=== PATIENT | male | born 1975 | race American Indian/Alaskan Native ===

== ENCOUNTER 2017-08-01 20:01 | Emergency (ER) | payer BC ==
[2017-08-01] MEDS ORDERED: ATROVENT IH ONE (20:34)
[2017-08-01] MEDS ORDERED: PROVENTIL IH ONE (20:34)
--- NOTE | 2017-08-01 22:37 | XRay Report ---
FINAL REPORT PROCEDURE: XR CHEST ROUTINE 2V TECHNIQUE: PA and lateral chest radiographs were obtained. CPT 01738 HISTORY: cough COMPARISON: No prior studies are available for comparison. FINDINGS: Heart: Normal. Mediastinum/Vessels: Normal. Lungs/Pleural space: Normal. Bony thorax: No acute osseous abnormality. Other: IMPRESSION: Negative examination.
--- NOTE | 2017-08-02 01:37 | Emergency Department Report ---
- General Chief Complaint: Upper Respiratory Infection Stated Complaint: POSS BRONCHITIS Time Seen by Provider: 08/02/17 01:29 Source: patient Mode of arrival: Ambulatory Limitations: No Limitations - History of Present Illness MD Complaint: cough (productive cough and SHOB for 4 days. he went to the Urgent care and was referred to here because of his wheezes. He smokes and says he gets such flare up because of weather change. His cough and breathing improved after getting breathing treatment.) - Related Data Previous Rx's Medication Instructions Recorded Last Taken Type Cephalexin [Keflex] 500 mg PO Q6H 10 Days capsule 08/02/17 Unknown Rx Prednisone 50 mg PO DAILY 7 Days tablet 08/02/17 Unknown Rx Allergies Allergy/AdvReac Type Severity Reaction Status Date / Time No Known Allergies Allergy Unverified 08/01/17 20:25 ED Review of Systems ROS: Stated complaint: POSS BRONCHITIS Other details as noted in HPI Constitutional: denies: chills, fever Eyes: denies: eye pain, eye discharge, vision change ENT: denies: ear pain, throat pain Respiratory: cough, shortness of breath, wheezing Cardiovascular: denies: chest pain, palpitations Endocrine: no symptoms reported Gastrointestinal: denies: abdominal pain, nausea, diarrhea Genitourinary: denies: urgency, dysuria Musculoskeletal: denies: back pain, joint swelling, arthralgia Skin: denies: rash, lesions Neurological: denies: headache, weakness, paresthesias Psychiatric: denies: anxiety, depression Hematological/Lymphatic: denies: easy bleeding, easy bruising ED Past Medical Hx - Past Medical History Previous Medical History?: No - Surgical History Past Surgical History?: No - Social History Smoking Status: Current Every Day Smoker Substance Use Type: None - Medications Home Medications: Home Medications Medication Instructions Recorded Confirmed Last Taken Type Cephalexin [Keflex] 500 mg PO Q6H 10 Days capsule 08/02/17 Unknown Rx Prednisone 50 mg PO DAILY 7 Days tablet 08/02/17 Unknown Rx ED Physical Exam - General Limitations: No Limitations General appearance: alert, in no apparent distress - Head Head exam: Present: atraumatic, normocephalic - Eye Eye exam: Present: normal appearance - ENT ENT exam: Present: mucous membranes moist - Neck Neck exam: Present: normal inspection - Respiratory Respiratory exam: Present: normal lung sounds bilaterally, wheezes, prolonged expiratory. Absent: respiratory distress, rales, rhonchi, stridor, chest wall tenderness, accessory muscle use, decreased breath sounds - Cardiovascular Cardiovascular Exam: Present: regular rate, normal rhythm. Absent: systolic murmur, diastolic murmur, rubs, gallop - GI/Abdominal GI/Abdominal exam: Present: soft, normal bowel sounds - Rectal Rectal exam: Present: deferred - Extremities Exam Extremities exam: Present: normal inspection - Back Exam Back exam: Present: normal inspection - Neurological Exam Neurological exam: Present: alert, oriented X3 - Psychiatric Psychiatric exam: Present: normal affect, normal mood - Skin Skin exam: Present: warm, dry, intact, normal color. Absent: rash ED Course Vital Signs 08/01/17 08/01/17 20:26 21:12 Temperature 100.7 F H Pulse Rate 101 H 104 H Respiratory 16 Rate Blood Pressure 124/67 O2 Sat by Pulse 92 100 Oximetry Critical care attestation.: If time is entered above; I have spent that time in minutes in the direct care of this critically ill patient, excluding procedure time. ED Disposition Clinical Impression: Acute bronchitis Qualifiers: Bronchitis organism: unspecified organism Qualified Code(s): J20.9 - Acute bronchitis, unspecified Disposition: DC-01 TO HOME OR SELFCARE Is pt being admited?: No Does the pt Need Aspirin: No Condition: Stable Instructions: Acute Bronchitis (ED) Prescriptions: Cephalexin [Keflex] 500 mg PO Q6H 10 Days capsule Prednisone 50 mg PO DAILY 7 Days tablet Referrals: THERESE SZYMANSKI MD [Primary Care Provider] - 3-5 Days Forms: Work/School Release Form(ED) Time of Disposition: 01:43
[2017-08-02 02:01] VITALS: BP 116/77
== END 2017-08-02 02:04 | disposition home or self-care (01) ==
LOC: ED 20:01
DX: J20.9 Acute bronchitis, unspecified (principal); F17.200 Nicotine dependence, unspecified, uncomplicated
CPT/HCPCS: 71046; 99283

== ENCOUNTER 2019-06-25 07:00 | Inpatient (IN) | payer BC, OTHER ==
[2019-06-25] MEDS ORDERED: methylPREDNISolone Sod Succinate 125 MG/2 ML INJ ONE (07:13)
[2019-06-25] MEDS ORDERED: MAGNESIUM SULFATE 2 GM/50 ML BAG IV ONE ×2 (07:14→07:17)
[2019-06-25] MEDS ORDERED: IPRATROPIUM 0.02% NEBU 2.5 ML IH ONE ×3 (07:17→07:21)
[2019-06-25] MEDS ORDERED: ALBUTEROL 2.5 MG/3 ML NEBU IH ONE ×2 (07:17→07:20)
[2019-06-25] MEDS ORDERED: methylPREDNISolone Sod Succinate 125 MG/2 ML INJ IV ONE (07:17)
--- NOTE | 2019-06-25 07:20 | Emergency Department Report ---
ED Shortness of Breath HPI - General Chief Complaint: Dyspnea/Respdistress Stated Complaint: ASTHMA Time Seen by Provider: 06/25/19 07:16 Source: patient Mode of arrival: Ambulatory Limitations: No Limitations - History of Present Illness Initial Comments: 43-year-old with history of asthma presents to ED with shortness of breath and wheezing for "a few days." Patient states he ran out of his albuterol. Patient reports cough, denies fever. Pt reports occasional marijuana and cocaine use. MD Complaint: shortness of breath -: days(s) (3) Severity: moderate Consistency: constant Improves With: nothing Worsens With: exertion Known History Of: asthma Associated Symptoms: cough Treatments Prior to Arrival: none - Related Data Home Oxygen Therapy: No Previous Rx's Medication Instructions Recorded Last Taken Type Cephalexin [Keflex] 500 mg PO Q6H 10 Days capsule 08/02/17 Unknown Rx predniSONE [Prednisone] 50 mg PO DAILY 7 Days tablet 08/02/17 Unknown Rx Allergies Allergy/AdvReac Type Severity Reaction Status Date / Time No Known Allergies Allergy Verified 06/25/19 07:32 ED Review of Systems ROS: Stated complaint: ASTHMA Other details as noted in HPI Comment: All other systems reviewed and negative Constitutional: denies: chills, fever Respiratory: cough, shortness of breath, wheezing Cardiovascular: denies: chest pain ED Past Medical Hx - Social History Smoking Status: Current Some Day Smoker Substance Use Type: Alcohol - Medications Home Medications: Home Medications Medication Instructions Recorded Confirmed Last Taken Type Cephalexin [Keflex] 500 mg PO Q6H 10 Days capsule 08/02/17 Unknown Rx predniSONE [Prednisone] 50 mg PO DAILY 7 Days tablet 08/02/17 Unknown Rx ED Physical Exam - General Limitations: No Limitations General appearance: alert - Head Head exam: Present: atraumatic, normocephalic - Eye Eye exam: Present: normal appearance - ENT ENT exam: Present: mucous membranes moist - Neck Neck exam: Present: normal inspection - Respiratory Respiratory exam: Present: respiratory distress, wheezes, other (tachypnea present) - Cardiovascular Cardiovascular Exam: Present: regular rate, normal rhythm - GI/Abdominal GI/Abdominal exam: Present: soft. Absent: distended, tenderness - Extremities Exam Extremities exam: Present: normal inspection - Neurological Exam Neurological exam: Present: alert, oriented X3 - Psychiatric Psychiatric exam: Present: normal affect, normal mood - Skin Skin exam: Present: warm, dry, intact, normal color ED Course Vital Signs 06/25/19 06/25/19 06/25/19 07:20 07:30 08:30 Temperature 97.6 F Pulse Rate 116 H 104 H Pulse Rate [ Anterior Bilateral Throughout] Respiratory 26 H 20 Rate Respiratory Rate [Anterior Bilateral Throughout] Blood Pressure 111/70 109/76 111/72 [Left] O2 Sat by Pulse 82 L 100 88 Oximetry 06/25/19 06/25/19 06/25/19 08:39 08:54 09:00 Temperature Pulse Rate 95 H Pulse Rate [ 101 H Anterior Bilateral Throughout] Respiratory 20 Rate Respiratory 32 H Rate [Anterior Bilateral Throughout] Blood Pressure 127/75 [Left] O2 Sat by Pulse 98 99 Oximetry 06/25/19 06/25/19 11:30 13:30 Temperature 98.6 F Pulse Rate 90 73 Pulse Rate [ Anterior Bilateral Throughout] Respiratory 20 20 Rate Respiratory Rate [Anterior Bilateral Throughout] Blood Pressure 110/76 106/58 [Left] O2 Sat by Pulse 96 94 Oximetry - Reevaluation(s) Reevaluation #1: 06/25/19 08:18 Pt feeling much better. Wheezes still present. Will re-assess when nebulizer has finished. Reevaluation #2: 06/25/19 09:53 Patient received another albuterol 5 mg. Wheezing much improved, however, pt requiring Ventimask as O2 sats drop to 82% RA. Pt reports he is feeling much better. Will admit to hospitalist. ED Medical Decision Making - Lab Data Result diagrams: 06/25/19 10:09 06/25/19 10:09 - Radiology Data Radiology results: report reviewed, image reviewed - Medical Decision Making 43 yo M w/ asthma exacerbation. Room air sats 82%. Initially given one hour albuterol/atrovent neb, mag sulfate, and solumedrol. Wheezing improved, but still present, so an additional albuterol 5 mg neb given. Pt feeling much better, wheezing resolved, however, pt requires Venti mask due to room air sats dropping to 82% when off oxygen. Will admit to hospitalist for further management. - Differential Diagnosis asthma, pneumonia, pulm edema Critical Care Time: Yes Critical care time in (mins) excluding proc time.: 35 Critical care attestation.: If time is entered above; I have spent that time in minutes in the direct care of this critically ill patient, excluding procedure time. Critical Care Time: 35 minutes ED Disposition Clinical Impression: Acute asthma exacerbation, Hypoxia Disposition: - OP ADMIT IP TO THIS HOSP Is pt being admited?: Yes Condition: Stable Time of Disposition: 09:55
--- NOTE | 2019-06-25 07:50 | XRay Report ---
CHEST 1 VIEW INDICATION: SOB. COMPARISON: 08/01/2017 FINDINGS: Support devices: None. Heart: Within normal limits. Lungs/Pleura: The lungs are hyperinflated suggesting underlying emphysema. No evidence for pneumonia, pleural fluid or pneumothorax. Additional findings: None. IMPRESSION: No acute findings. Hyperinflated lungs. Signer Name: Aidan Burden Jr, MD Signed: 06/25/2019 7:45 AM Workstation Name: [id number]
[2019-06-25 10:20] LABS: Hematocrit 41.9 % (35.5-45.6); Hemoglobin 13.5 gm/dl (11.8-15.2); Mean Corpuscular HGB Conc 32 % (32-34); Mean Corpuscular Volume 75 fl (84-94); Platelet Count 164 K/mm3 (140-440); Red Cell Distribution Width 17.5 % (13.2-15.2)
[2019-06-25 10:38] LABS: BUN/Creatinine Ratio 23; Blood Urea Nitrogen 25 mg/dL (9-20); Calcium 8.9 mg/dL (8.4-10.2); Hemolysis Index 3
[2019-06-25] MEDS ORDERED: POTASSIUM CHLORIDE ER 20 MEQ TAB PO ONE ×2 (11:15→12:00)
[2019-06-25 11:48] LABS: Basophils % (Manual) 0 % (0.0-1.8); Eosinophils % (Manual) 0 % (0.0-4.3); Total Cells Counted 100
[2019-06-25 11:50] LABS: Anisocytosis Few; Hypochromasia 1+; Platelet Estimate Consistent w Auto; Poikilocytosis Few; Target Cells Few
[2019-06-25] MEDS ORDERED: ALBUTEROL 2.5 MG/3 ML NEBU IH PRN ×2 (17:01→20:07)
--- NOTE | 2019-06-25 17:08 | History and Physical Report ---
History of Present Illness Date of examination: 06/25/19 Date of admission: 06/25/19 10:05 Chief complaint: SOB History of present illness: Patient is 43 yo man from [facility] with a history of asthma who presents to [facility] ED with SOB for more than 2 days, now getting progressively worsen, constant, severe associated with non productive cough, wheezing and generalized malaise. 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 He ran out of nebulizer solution more than a week ago. His albuterol inhaler doesn't help. In ED, he was found to have Room air sats 82%. Initially given one hour albuterol/atrovent neb, mag sulfate, and solumedrol. Wheezing improved, but still present, so an additional albuterol 5 mg neb given. Pt feeling much better, wheezing resolved, however, pt requires Venti mask due to room air sats dropping to 82% when off oxygen. Will admit to hospitalist for further management. PMH: as hpi PSH: denies SH: tobacco dependency, denies ETOH, has used cocaine in the past FH: mother dm, hypertension ROS: Constitutional: denies: fever ENT: denies: throat or neck pain Respiratory: +cough, shortness of breath Cardiovascular: denies: chest pain Endocrine: denies unexplained weight loss or gain Gastrointestinal: denies: abdominal pain, nausea Genitourinary: denies: dysuria Rectal: denies no incontinence, no bleeding, no itching, no discharge Musculoskeletal: denies swelling, myaglia, muscle weakness Skin: denies: rash Neurological: denies: headache Hematological/Lymphatic: denies: easy bleeding or easy bruising Allergic/Immunologic: no urticaria, no allergic rhinitis, no anaphylaxis Psych: denies sadness or hopelessness, SI/HI Medications and Allergies Allergies Allergy/AdvReac Type Severity Reaction Status Date / Time No Known Allergies Allergy Verified 06/25/19 07:32 Home Medications Medication Instructions Recorded Confirmed Last Taken Type Cephalexin [Keflex] 500 mg PO Q6H 10 Days capsule 08/02/17 Unknown Rx predniSONE [Prednisone] 50 mg PO DAILY 7 Days tablet 08/02/17 Unknown Rx Active Meds: Active Medications Albuterol (Proventil) 2.5 mg IH Q4HRT PRN PRN Reason: Shortness Of Breath Albuterol/Ipratropium (Duoneb *Not For Prn Use*) 1 ampul IH TIDRT HEMA Exam - Physical Exam Narrative exam: Gen: thin frail, ill appearing off Vm on Nasal canula, Awake, Alert, Orientated x 3 HEENT: NCAT, EOMI, PERRL, OP Clear Neck: supple, no adenopathy, no thyromegaly, no JVD CVS/Heart: RRR, normal S1S2, pulses present bilaterally Chest/Lungs: exp wheezing, Symmetrical chest expansion, good air entry bilaterally GI/Abdomen: soft, NTND, good bowel sounds, no guarding or rebound /Bladder: no suprapubic tenderness, no CVA or paraspinal tenderness Extermity/Skin: no c/c/e, no obvious rash MSK: FROM x 4 Neuro: CN 2-12 grossly intact, no new focal deficits Psych: calm - Constitutional Vitals: Temp Pulse Resp BP Pulse Ox 98.6 F 73 20 106/58 94 06/25/19 11:30 06/25/19 13:30 06/25/19 13:30 06/25/19 13:30 06/25/19 13:30 Results - Labs CBC & Chem 7: 06/25/19 10:09 06/25/19 10:09 Labs: Laboratory Last Values WBC 9.3 K/mm3 (4.5-11.0) 06/25/19 10:09 RBC 5.60 M/mm3 (3.65-5.03) H 06/25/19 10:09 Hgb 13.5 gm/dl (11.8-15.2) 06/25/19 10:09 Hct 41.9 % (35.5-45.6) 06/25/19 10:09 MCV 75 fl (84-94) L 06/25/19 10:09 MCH 24 pg (28-32) L 06/25/19 10:09 MCHC 32 % (32-34) 06/25/19 10:09 RDW 17.5 % (13.2-15.2) H 06/25/19 10:09 Plt Count 164 K/mm3 (140-440) 06/25/19 10:09 Add Manual Diff Complete 06/25/19 10:09 Total Counted 100 06/25/19 10:09 Seg Neutrophils % Rehab Consultant 06/25/19 10:09 Seg Neuts % (Manual) 92.0 % (40.0-70.0) H 06/25/19 10:09 Band Neutrophils % 0 % 06/25/19 10:09 Lymphocytes % (Manual) 6.0 % (13.4-35.0) L 06/25/19 10:09 Reactive Lymphs % (Man) 0 % 06/25/19 10:09 Monocytes % (Manual) 2.0 % (0.0-7.3) 06/25/19 10:09 Eosinophils % (Manual) 0 % (0.0-4.3) 06/25/19 10:09 Basophils % (Manual) 0 % (0.0-1.8) 06/25/19 10:09 Metamyelocytes % 0 % 06/25/19 10:09 Myelocytes % 0 % 06/25/19 10:09 Promyelocytes % 0 % 06/25/19 10:09 Blast Cells % 0 % 06/25/19 10:09 Nucleated RBC % Not Reportable 06/25/19 10:09 Seg Neutrophils # Man 8.6 K/mm3 (1.8-7.7) H 06/25/19 10:09 Band Neutrophils # 0.0 K/mm3 06/25/19 10:09 Lymphocytes # (Manual) 0.6 K/mm3 (1.2-5.4) L 06/25/19 10:09 Abs React Lymphs (Man) 0.0 K/mm3 06/25/19 10:09 Monocytes # (Manual) 0.2 K/mm3 (0.0-0.8) 06/25/19 10:09 Eosinophils # (Manual) 0.0 K/mm3 (0.0-0.4) 06/25/19 10:09 Basophils # (Manual) 0.0 K/mm3 (0.0-0.1) 06/25/19 10:09 Metamyelocytes # 0.0 K/mm3 06/25/19 10:09 Myelocytes # 0.0 K/mm3 06/25/19 10:09 Promyelocytes # 0.0 K/mm3 06/25/19 10:09 Blast Cells # 0.0 K/mm3 06/25/19 10:09 WBC Morphology Not Reportable 06/25/19 10:09 Hypersegmented Neuts Not Reportable 06/25/19 10:09 Hyposegmented Neuts Not Reportable 06/25/19 10:09 Hypogranular Neuts Not Reportable 06/25/19 10:09 Smudge Cells Not Reportable 06/25/19 10:09 Toxic Granulation Not Reportable 06/25/19 10:09 Toxic Vacuolation Not Reportable 06/25/19 10:09 Dohle Bodies Not Reportable 06/25/19 10:09 Pelger-Huet Anomaly Not Reportable 06/25/19 10:09 Aj Rods Not Reportable 06/25/19 10:09 Platelet Estimate Consistent w auto 06/25/19 10:09 Clumped Platelets Not Reportable 06/25/19 10:09 Plt Clumps, EDTA Not Reportable 06/25/19 10:09 Large Platelets Not Reportable 06/25/19 10:09 Giant Platelets Not Reportable 06/25/19 10:09 Platelet Satelliting Not Reportable 06/25/19 10:09 Plt Morphology Comment Not Reportable 06/25/19 10:09 RBC Morphology Not Reportable 06/25/19 10:09 Dimorphic RBCs Not Reportable 06/25/19 10:09 Polychromasia Not Reportable 06/25/19 10:09 Hypochromasia 1+ 06/25/19 10:09 Poikilocytosis Few 06/25/19 10:09 Anisocytosis Few 06/25/19 10:09 Microcytosis Not Reportable 06/25/19 10:09 Macrocytosis Not Reportable 06/25/19 10:09 Spherocytes Not Reportable 06/25/19 10:09 Pappenheimer Bodies Not Reportable 06/25/19 10:09 Sickle Cells Not Reportable 06/25/19 10:09 Target Cells Few 06/25/19 10:09 Tear Drop Cells Not Reportable 06/25/19 10:09 Ovalocytes Not Reportable 06/25/19 10:09 Helmet Cells Not Reportable 06/25/19 10:09 [place] Bodies Not Reportable 06/25/19 10:09 [place] Rings Not Reportable 06/25/19 10:09 Beto Cells Not Reportable 06/25/19 10:09 Bite Cells Not Reportable 06/25/19 10:09 Crenated Cell Not Reportable 06/25/19 10:09 Elliptocytes Not Reportable 06/25/19 10:09 Acanthocytes (Spur) Not Reportable 06/25/19 10:09 Rouleaux Not Reportable 06/25/19 10:09 Hemoglobin C Crystals Not Reportable 06/25/19 10:09 Schistocytes Not Reportable 06/25/19 10:09 Malaria parasites Not Reportable 06/25/19 10:09 [place]on Bodies Not Reportable 06/25/19 10:09 Hem Pathologist Commnt No 06/25/19 10:09 Sodium 135 mmol/L (137-145) L 06/25/19 10:09 Potassium 3.3 mmol/L (3.6-5.0) L 06/25/19 10:09 Chloride 88.4 mmol/L (98-107) L 06/25/19 10:09 Carbon Dioxide 29 mmol/L (22-30) 06/25/19 10:09 Anion Gap 21 mmol/L 06/25/19 10:09 BUN 25 mg/dL (9-20) H 06/25/19 10:09 Creatinine 1.1 mg/dL (0.8-1.5) 06/25/19 10:09 Estimated GFR > 60 ml/min 06/25/19 10:09 BUN/Creatinine Ratio 23 % 06/25/19 10:09 Glucose 207 mg/dL (75-100) H 06/25/19 10:09 Calcium 8.9 mg/dL (8.4-10.2) 06/25/19 10:09 Assessment and Plan Assessment and plan: Patient is 43 yo man from [facility] with a history of asthma who presents to [facility] ED with SOB for more than 2 days, now getting progressively worsen, constant, severe associated with non productive cough, wheezing and generalized malaise. 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 He ran out of nebulizer solution more than a week ago. His albuterol inhaler doesn't help. In ED, he was found to have Room air sats 82%. Initially given one hour albuterol/atrovent neb, mag sulfate, and solumedrol. Wheezing improved, but still present, so an additional albuterol 5 mg neb given. Pt feeling much better, wheezing resolved, however, pt requires Venti mask due to room air sats dropping to 82% when off oxygen. Will admit to hospitalist for further management. Acute hypoxic respiratory failure due to Asthma Acute Asthma exacerbation: iv steriods, empiric abx, nebs Hyponatremia with hyperglycemia: iniatie ssi Hyperglycemia, new DM: a1c Hypokalemia: replete, recheck in AM Tobacco dependency; dianetic counselor on stopping DVT ppx sq heparin
[2019-06-25] MEDS ORDERED: DEXTROSE 50% IN WATER (25GM) 50 ML SYRINGE IV PRN (17:14)
[2019-06-25] MEDS ORDERED: HYDROcodone/ACETAMINOPHEN 5-325 MG TAB PO PRN (17:16)
[2019-06-25] MEDS ORDERED: ONDANSETRON 4 MG/2 ML INJ IV PRN (17:16)
[2019-06-25] MEDS ORDERED: MORPHINE 2 MG/1 ML INJ IV PRN (17:16)
[2019-06-25] MEDS ORDERED: ACETAMINOPHEN 325 MG TAB PO PRN (17:16)
[2019-06-25] MEDS ORDERED: IPRATROPIUM/ALBUTEROL SULFATE 3 ML AMPUL.NEB IH SCH (20:00)
[2019-06-25] MEDS: INSULIN LISPRO 100 UNIT/ML SUB-Q SCH (21:27)
[2019-06-25] MEDS: BUDESONIDE 0.5 MG/2 ML NEBU IH SCH (21:49)
[2019-06-25] MEDS: ARFORMOTEROL 15 MCG/2 ML NEBU IH SCH (21:50)
[2019-06-25] MEDS: IPRATROPIUM/ALBUTEROL SULFATE 3 ML AMPUL.NEB IH SCH (21:58)
[2019-06-26] MEDS: AZITHROMYCIN 500 MG in SODIUM CHLORIDE 0.9% 250ML 250 ML IV SCH ×2 (00:13→09:14)
[2019-06-26 07:55] LABS: Hematocrit 41.7 % (35.5-45.6); Hemoglobin 13.4 gm/dl (11.8-15.2); Mean Corpuscular HGB Conc 32 % (32-34); Mean Corpuscular Volume 75 fl (84-94); Red Blood Count 5.57 M/mm3 (3.65-5.03); Red Cell Distribution Width 17.6 % (13.2-15.2)
[2019-06-26] MEDS: INSULIN LISPRO 100 UNIT/ML SUB-Q SCH ×4 (08:00→23:13)
[2019-06-26 08:14] LABS: BUN/Creatinine Ratio 27; Blood Urea Nitrogen 24 mg/dL (9-20); Hemolysis Index 12
[2019-06-26 08:50] LABS: Platelet Count 150 K/mm3 (140-440)
[2019-06-26] MEDS: PANTOPRAZOLE 40 MG TAB PO SCH (09:14)
[2019-06-26] MEDS: methylPREDNISolone Sod Succinate 125 MG/2 ML INJ IV SCH ×3 (09:14→21:25)
[2019-06-26] MEDS: IPRATROPIUM/ALBUTEROL SULFATE 3 ML AMPUL.NEB IH SCH ×3 (09:55→20:45)
[2019-06-26] MEDS: BUDESONIDE 0.5 MG/2 ML NEBU IH SCH ×2 (09:55→20:45)
[2019-06-26] MEDS: ARFORMOTEROL 15 MCG/2 ML NEBU IH SCH ×2 (10:00→20:45)
--- NOTE | 2019-06-26 16:10 | Progress Note ---
Assessment and Plan Assessment and plan: Patient is 43 yo man from [facility] with a history of asthma who presents to [facility] ED with SOB for more than 2 days, now getting progressively worsen, constant, severe associated with non productive cough, wheezing and generalized malaise. 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 He ran out of nebulizer solution more than a week ago. His albuterol inhaler doesn't help. In ED, he was found to have Room air sats 82%. Initially given one hour albuterol/atrovent neb, mag sulfate, and solumedrol. Wheezing improved, but still present, so an additional albuterol 5 mg neb given. Pt feeling much better, wheezing resolved, however, pt requires Venti mask due to room air sats dropping to 82% when off oxygen. Acute hypoxic respiratory failure due to Asthma: treat with o2, trying to wean off Acute Asthma exacerbation: iv steriods, empiric abx, nebs Hyponatremia with hyperglycemia: initiated ssi Hyperglycemia, new DM: a1c Hypokalemia: repleted, resolved Tobacco dependency; general counsel on stopping DVT ppx sq heparin, drop in plt repeat cbc in AM Disposition; continue inpatient care, once o2 weaned off then d/c History Interval history: Patient was seen and examined. Follow-up on current diagnosis Asthma ex. Overnight uneventful. Patient denies any chest pain, shortness of breath, nausea/vomiting or severe headaches. Imaging, nursing note, chart, labs and old chart reviewed. Discussed with patient. Patient still on 3 liters O2 Hospitalist Physical - Physical exam Narrative exam: Gen: thin frail, ill appearing off Vm on Nasal canula, Awake, Alert, Orientated x 3 HEENT: NCAT, EOMI, PERRL, OP Clear Neck: supple, no adenopathy, no thyromegaly, no JVD CVS/Heart: RRR, normal S1S2, pulses present bilaterally Chest/Lungs: exp wheezing, Symmetrical chest expansion, good air entry bilaterally GI/Abdomen: soft, NTND, good bowel sounds, no guarding or rebound /Bladder: no suprapubic tenderness, no CVA or paraspinal tenderness Extermity/Skin: no c/c/e, no obvious rash, cyanosis around mouth resolved MSK: FROM x 4 Neuro: CN 2-12 grossly intact, no new focal deficits Psych: calm - Constitutional Vitals: Temp Pulse Resp BP Pulse Ox 98.8 F 84 20 115/76 98 06/26/19 12:20 06/26/19 12:20 06/26/19 12:20 06/26/19 12:20 06/26/19 12:20 Results - Labs CBC & Chem 7: 06/26/19 07:28 06/26/19 07:28 Labs: Laboratory Last Values WBC 9.1 K/mm3 (4.5-11.0) 06/26/19 07:28 RBC 5.57 M/mm3 (3.65-5.03) H 06/26/19 07:28 Hgb 13.4 gm/dl (11.8-15.2) 06/26/19 07:28 Hct 41.7 % (35.5-45.6) 06/26/19 07:28 MCV 75 fl (84-94) L 06/26/19 07:28 MCH 24 pg (28-32) L 06/26/19 07:28 MCHC 32 % (32-34) 06/26/19 07:28 RDW 17.6 % (13.2-15.2) H 06/26/19 07:28 Plt Count 150 K/mm3 (140-440) 06/26/19 07:28 Add Manual Diff Complete 06/25/19 10:09 Total Counted 100 06/25/19 10:09 Seg Neutrophils % Cylinder Handler 06/25/19 10:09 Seg Neuts % (Manual) 92.0 % (40.0-70.0) H 06/25/19 10:09 Band Neutrophils % 0 % 06/25/19 10:09 Lymphocytes % (Manual) 6.0 % (13.4-35.0) L 06/25/19 10:09 Reactive Lymphs % (Man) 0 % 06/25/19 10:09 Monocytes % (Manual) 2.0 % (0.0-7.3) 06/25/19 10:09 Eosinophils % (Manual) 0 % (0.0-4.3) 06/25/19 10:09 Basophils % (Manual) 0 % (0.0-1.8) 06/25/19 10:09 Metamyelocytes % 0 % 06/25/19 10:09 Myelocytes % 0 % 06/25/19 10:09 Promyelocytes % 0 % 06/25/19 10:09 Blast Cells % 0 % 06/25/19 10:09 Nucleated RBC % Not Reportable 06/25/19 10:09 Seg Neutrophils # Man 8.6 K/mm3 (1.8-7.7) H 06/25/19 10:09 Band Neutrophils # 0.0 K/mm3 06/25/19 10:09 Lymphocytes # (Manual) 0.6 K/mm3 (1.2-5.4) L 06/25/19 10:09 Abs React Lymphs (Man) 0.0 K/mm3 06/25/19 10:09 Monocytes # (Manual) 0.2 K/mm3 (0.0-0.8) 06/25/19 10:09 Eosinophils # (Manual) 0.0 K/mm3 (0.0-0.4) 06/25/19 10:09 Basophils # (Manual) 0.0 K/mm3 (0.0-0.1) 06/25/19 10:09 Metamyelocytes # 0.0 K/mm3 06/25/19 10:09 Myelocytes # 0.0 K/mm3 06/25/19 10:09 Promyelocytes # 0.0 K/mm3 06/25/19 10:09 Blast Cells # 0.0 K/mm3 06/25/19 10:09 WBC Morphology Not Reportable 06/25/19 10:09 Hypersegmented Neuts Not Reportable 06/25/19 10:09 Hyposegmented Neuts Not Reportable 06/25/19 10:09 Hypogranular Neuts Not Reportable 06/25/19 10:09 Smudge Cells Not Reportable 06/25/19 10:09 Toxic Granulation Not Reportable 06/25/19 10:09 Toxic Vacuolation Not Reportable 06/25/19 10:09 Dohle Bodies Not Reportable 06/25/19 10:09 Pelger-Huet Anomaly Not Reportable 06/25/19 10:09 Aj Rods Not Reportable 06/25/19 10:09 Platelet Estimate Consistent w auto 06/25/19 10:09 Clumped Platelets Not Reportable 06/25/19 10:09 Plt Clumps, EDTA Not Reportable 06/25/19 10:09 Large Platelets Not Reportable 06/25/19 10:09 Giant Platelets Not Reportable 06/25/19 10:09 Platelet Satelliting Not Reportable 06/25/19 10:09 Plt Morphology Comment Not Reportable 06/25/19 10:09 RBC Morphology Not Reportable 06/25/19 10:09 Dimorphic RBCs Not Reportable 06/25/19 10:09 Polychromasia Not Reportable 06/25/19 10:09 Hypochromasia 1+ 06/25/19 10:09 Poikilocytosis Few 06/25/19 10:09 Anisocytosis Few 06/25/19 10:09 Microcytosis Not Reportable 06/25/19 10:09 Macrocytosis Not Reportable 06/25/19 10:09 Spherocytes Not Reportable 06/25/19 10:09 Pappenheimer Bodies Not Reportable 06/25/19 10:09 Sickle Cells Not Reportable 06/25/19 10:09 Target Cells Few 06/25/19 10:09 Tear Drop Cells Not Reportable 06/25/19 10:09 Ovalocytes Not Reportable 06/25/19 10:09 Helmet Cells Not Reportable 06/25/19 10:09 Rae[place] Bodies Not Reportable 06/25/19 10:09 [place] Rings Not Reportable 06/25/19 10:09 [place] Cells Not Reportable 06/25/19 10:09 Bite Cells Not Reportable 06/25/19 10:09 Crenated Cell Not Reportable 06/25/19 10:09 Elliptocytes Not Reportable 06/25/19 10:09 Acanthocytes (Spur) Not Reportable 06/25/19 10:09 Rouleaux Not Reportable 06/25/19 10:09 Hemoglobin C Crystals Not Reportable 06/25/19 10:09 Schistocytes Not Reportable 06/25/19 10:09 Malaria parasites Not Reportable 06/25/19 10:09 Samson Bodies Not Reportable 06/25/19 10:09 Hem Pathologist Commnt No 06/25/19 10:09 Sodium 139 mmol/L (137-145) 06/26/19 07:28 Potassium 3.8 mmol/L (3.6-5.0) 06/26/19 07:28 Chloride 93.2 mmol/L (98-107) L 06/26/19 07:28 Carbon Dioxide 27 mmol/L (22-30) 06/26/19 07:28 Anion Gap 23 mmol/L 06/26/19 07:28 BUN 24 mg/dL (9-20) H 06/26/19 07:28 Creatinine 0.9 mg/dL (0.8-1.5) 06/26/19 07:28 Estimated GFR > 60 ml/min 06/26/19 07:28 BUN/Creatinine Ratio 27 % 06/26/19 07:28 Glucose 116 mg/dL (75-100) H 06/26/19 07:28 POC Glucose 90 (70-105) 06/26/19 07:52 Hemoglobin A1c 5.2 % (4-6) 06/25/19 19:31 Calcium 9.0 mg/dL (8.4-10.2) 06/26/19 07:28 Active Medications - Current Medications Current Medications: Generic Name Dose Route Start Last Admin Trade Name Freq PRN Reason Stop Dose Admin Acetaminophen 650 mg 06/25/19 17:16 Tylenol PO Q6H PRN Non Cardiac Pain or Temp>100.5 Acetaminophen/Hydrocodone Bitart 1 each 06/25/19 17:16 [place] 5/325 PO Q4H PRN Pain, Moderate (4-6) Albuterol 2.5 mg 06/25/19 20:07 Proventil IH Q4HRT PRN Shortness Of Breath Albuterol/Ipratropium 1 ampul 06/25/19 20:07 06/26/19 14:24 Duoneb *Not For Prn Use* IH 1 ampul TIDRT HEMA Administration Arformoterol Tartrate 15 mcg 06/25/19 20:07 06/26/19 10:00 Brovana Nebu IH 15 mcg Q12HRT HEMA Administration Budesonide 0.5 mg 06/25/19 20:07 06/26/19 09:55 Pulmicort IH 0.5 mg Q12HRT HEMA Administration Dextrose 50 ml 06/25/19 17:14 D50w (25gm) Syringe IV Q30MIN PRN Hypoglycemia Protocol Heparin Sodium (Porcine) 5,000 unit 06/26/19 22:00 Heparin SUB-Q Q12HR HEMA Azithromycin 500 mg/ Sodium 250 mls @ 250 mls/hr 06/25/19 20:07 06/26/19 09:14 Chloride IV 250 mls/hr Q24HR HEMA Administration Protocol Insulin Human Lispro 0 unit 06/25/19 22:00 06/26/19 11:25 Humalog SUB-Q Not Given ACHS [facility] Protocol Methylprednisolone Sodium Succinate 80 mg 06/26/19 09:00 06/26/19 13:27 Solu-Medrol IV 80 mg Q8HR HEMA Administration Morphine Sulfate 2 mg 06/25/19 17:16 Morphine IV Q4H PRN Pain , Severe (7-10) Ondansetron HCl 4 mg 06/25/19 17:16 Zofran IV Q4H PRN Nausea And Vomiting Pantoprazole Sodium 40 mg 06/26/19 10:00 06/26/19 09:14 Protonix PO 40 mg QDAY HEMA Administration Nutrition/Malnutrition Assess - Dietary Evaluation Nutrition/Malnutrition Findings: Nutrition Notes Start: 06/26/19 10:19 Freq: Status: Active Protocol: Document 06/26/19 10:19 JAZLYN (Rec: 06/26/19 10:34 JAZLYN [id number]) Co-Sign 06/26/19 10:19 LP Nutrition Notes Need for 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 Weight Status Underweight Subjective/Other Information RD screen for malnutrtion per RN. Pt stated that he thought he lost 10lbs in 6 months. Pt stated that he's naturally thin and eat everything he can . Pt ate 100% of breakfast and stated that he could eat more . Pt had no muscle or fat depletion. 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 Pt was coughing up flem, but no food. Burn Absent Trauma Absent GI Symptoms None Current % PO Good (75-100%) Minimum of two criteria No physical signs of malnutrition Is patient on ventilator? No Is Patient Ambulatory and/or Out of Bed Yes REE-([place] or-ambulatory/OOB) [ 0942.975 [id number]] Nutrition Intervention Revisit per MD consult or patient Sign Off request:
[2019-06-26] MEDS ORDERED: HEPARIN 5,000 UNIT/1 ML VIAL SUB-Q SCH (22:00)
[2019-06-27] MEDS: methylPREDNISolone Sod Succinate 125 MG/2 ML INJ IV SCH ×2 (05:03→15:03)
[2019-06-27 05:48] LABS: Hematocrit 37.4 % (35.5-45.6); Hemoglobin 12.1 gm/dl (11.8-15.2); Mean Corpuscular HGB Conc 32 % (32-34); Mean Corpuscular Volume 75 fl (84-94); Platelet Count 148 K/mm3 (140-440); Red Blood Count 4.96 M/mm3 (3.65-5.03); Red Cell Distribution Width 17.6 % (13.2-15.2)
[2019-06-27] MEDS: ARFORMOTEROL 15 MCG/2 ML NEBU IH SCH ×2 (08:39→21:08)
[2019-06-27] MEDS: IPRATROPIUM/ALBUTEROL SULFATE 3 ML AMPUL.NEB IH SCH ×3 (08:39→21:08)
[2019-06-27] MEDS: BUDESONIDE 0.5 MG/2 ML NEBU IH SCH ×2 (08:40→21:08)
[2019-06-27] MEDS: INSULIN LISPRO 100 UNIT/ML SUB-Q SCH ×2 (09:32→12:55)
[2019-06-27] MEDS: AZITHROMYCIN 500 MG in SODIUM CHLORIDE 0.9% 250ML 250 ML IV SCH (11:09)
[2019-06-27] MEDS: PANTOPRAZOLE 40 MG TAB PO SCH (11:09)
--- NOTE | 2019-06-27 16:05 | Progress Note ---
Assessment and Plan Assessment and plan: Patient is 43 yo man from [facility] with a history of asthma who presents to [facility] ED with SOB for more than 2 days, now getting progressively worsen, constant, severe associated with non productive cough, wheezing and generalized malaise. 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 He ran out of nebulizer solution more than a week ago. His albuterol inhaler doesn't help. In ED, he was found to have Room air sats 82%. Initially given one hour albuterol/atrovent neb, mag sulfate, and solumedrol. Wheezing improved, but still present, so an additional albuterol 5 mg neb given. Pt feeling much better, wheezing resolved, however, pt requires Venti mask due to room air sats dropping to 82% when off oxygen. pCXR no acute finding, hyperinflated lungs. Acute hypoxic respiratory failure due to Asthma: treat with o2, trying to wean off Acute Asthma exacerbation: iv steroids, empiric abx, nebs Hyponatremia with hyperglycemia: initiated ssi Hyperglycemia, new DM: a1c Hypokalemia: repleted, resolved Tobacco dependency; scholarship counselor on stopping DVT ppx sq heparin, drop in plt repeat cbc in AM Disposition; continue inpatient care, once o2 weaned off then d/c still on O2, lungs sound indicative of pneumonia vs atelectasis although initial cxr was negative, also radiographic COPD is possible. History Interval history: Patient was seen and examined. Follow-up on current diagnosis Asthma ex. Yoseph rnight uneventful. Patient denies any chest pain, shortness of breath, nausea/vomiting or severe headaches. Imaging, nursing note, chart, labs and old chart reviewed. Discussed with patient. Patient still on 3 liters O2 Hospitalist Physical - Physical exam Narrative exam: Gen: thin frail, ill appearing off Vm on Nasal canula, Awake, Alert, Orientated x 3 HEENT: NCAT, EOMI, PERRL, OP Clear Neck: supple, no adenopathy, no thyromegaly, no JVD CVS/Heart: RRR, normal S1S2, pulses present bilaterally Chest/Lungs: exp wheezing, coarse bs left, Symmetrical chest expansion, good air entry bilaterally GI/Abdomen: soft, NTND, good bowel sounds, no guarding or rebound /Bladder: no suprapubic tenderness, no CVA or paraspinal tenderness Extermity/Skin: no c/c/e, no obvious rash, cyanosis around mouth resolved MSK: FROM x 4 Neuro: CN 2-12 grossly intact, no new focal deficits Psych: calm - Constitutional Vitals: Temp Pulse Resp BP Pulse Ox 98.1 F 85 20 111/65 91 06/27/19 12:14 06/27/19 12:14 06/27/19 12:14 06/27/19 12:14 06/27/19 12:14 Results - Labs CBC & Chem 7: 06/27/19 05:13 06/26/19 07:28 Labs: Laboratory Last Values WBC 9.3 K/mm3 (4.5-11.0) 06/27/19 05:13 RBC 4.96 M/mm3 (3.65-5.03) 06/27/19 05:13 Hgb 12.1 gm/dl (11.8-15.2) 06/27/19 05:13 Hct 37.4 % (35.5-45.6) 06/27/19 05:13 MCV 75 fl (84-94) L 06/27/19 05:13 MCH 24 pg (28-32) L 06/27/19 05:13 MCHC 32 % (32-34) 06/27/19 05:13 RDW 17.6 % (13.2-15.2) H 06/27/19 05:13 Plt Count 148 K/mm3 (140-440) 06/27/19 05:13 Add Manual Diff Complete 06/25/19 10:09 Total Counted 100 06/25/19 10:09 Seg Neutrophils % Operations Leader 06/25/19 10:09 Seg Neuts % (Manual) 92.0 % (40.0-70.0) H 06/25/19 10:09 Band Neutrophils % 0 % 06/25/19 10:09 Lymphocytes % (Manual) 6.0 % (13.4-35.0) L 06/25/19 10:09 Reactive Lymphs % (Man) 0 % 06/25/19 10:09 Monocytes % (Manual) 2.0 % (0.0-7.3) 06/25/19 10:09 Eosinophils % (Manual) 0 % (0.0-4.3) 06/25/19 10:09 Basophils % (Manual) 0 % (0.0-1.8) 06/25/19 10:09 Metamyelocytes % 0 % 06/25/19 10:09 Myelocytes % 0 % 06/25/19 10:09 Promyelocytes % 0 % 06/25/19 10:09 Blast Cells % 0 % 06/25/19 10:09 Nucleated RBC % Not Reportable 06/25/19 10:09 Seg Neutrophils # Man 8.6 K/mm3 (1.8-7.7) H 06/25/19 10:09 Band Neutrophils # 0.0 K/mm3 06/25/19 10:09 Lymphocytes # (Manual) 0.6 K/mm3 (1.2-5.4) L 06/25/19 10:09 Abs React Lymphs (Man) 0.0 K/mm3 06/25/19 10:09 Monocytes # (Manual) 0.2 K/mm3 (0.0-0.8) 06/25/19 10:09 Eosinophils # (Manual) 0.0 K/mm3 (0.0-0.4) 06/25/19 10:09 Basophils # (Manual) 0.0 K/mm3 (0.0-0.1) 06/25/19 10:09 Metamyelocytes # 0.0 K/mm3 06/25/19 10:09 Myelocytes # 0.0 K/mm3 06/25/19 10:09 Promyelocytes # 0.0 K/mm3 06/25/19 10:09 Blast Cells # 0.0 K/mm3 06/25/19 10:09 WBC Morphology Not Reportable 06/25/19 10:09 Hypersegmented Neuts Not Reportable 06/25/19 10:09 Hyposegmented Neuts Not Reportable 06/25/19 10:09 Hypogranular Neuts Not Reportable 06/25/19 10:09 Smudge Cells Not Reportable 06/25/19 10:09 Toxic Granulation Not Reportable 06/25/19 10:09 Toxic Vacuolation Not Reportable 06/25/19 10:09 Dohle Bodies Not Reportable 06/25/19 10:09 Pelger-Huet Anomaly Not Reportable 06/25/19 10:09 Aj Rods Not Reportable 06/25/19 10:09 Platelet Estimate Consistent w auto 06/25/19 10:09 Clumped Platelets Not Reportable 06/25/19 10:09 Plt Clumps, EDTA Not Reportable 06/25/19 10:09 Large Platelets Not Reportable 06/25/19 10:09 Giant Platelets Not Reportable 06/25/19 10:09 Platelet Satelliting Not Reportable 06/25/19 10:09 Plt Morphology Comment Not Reportable 06/25/19 10:09 RBC Morphology Not Reportable 06/25/19 10:09 Dimorphic RBCs Not Reportable 06/25/19 10:09 Polychromasia Not Reportable 06/25/19 10:09 Hypochromasia 1+ 06/25/19 10:09 Poikilocytosis Few 06/25/19 10:09 Anisocytosis Few 06/25/19 10:09 Microcytosis Not Reportable 06/25/19 10:09 Macrocytosis Not Reportable 06/25/19 10:09 Spherocytes Not Reportable 06/25/19 10:09 Pappenheimer Bodies Not Reportable 06/25/19 10:09 Sickle Cells Not Reportable 06/25/19 10:09 Target Cells Few 06/25/19 10:09 Tear Drop Cells Not Reportable 06/25/19 10:09 Ovalocytes Not Reportable 06/25/19 10:09 Helmet Cells Not Reportable 06/25/19 10:09 Rae-[place] Bodies Not Reportable 06/25/19 10:09 [place] Rings Not Reportable 06/25/19 10:09 [place] Cells Not Reportable 06/25/19 10:09 Bite Cells Not Reportable 06/25/19 10:09 Crenated Cell Not Reportable 06/25/19 10:09 Elliptocytes Not Reportable 06/25/19 10:09 Acanthocytes (Spur) Not Reportable 06/25/19 10:09 Rouleaux Not Reportable 06/25/19 10:09 Hemoglobin C Crystals Not Reportable 06/25/19 10:09 Schistocytes Not Reportable 06/25/19 10:09 Malaria parasites Not Reportable 06/25/19 10:09 Samson Bodies Not Reportable 06/25/19 10:09 Hem Pathologist Commnt No 06/25/19 10:09 Sodium 139 mmol/L (137-145) 06/26/19 07:28 Potassium 3.8 mmol/L (3.6-5.0) 06/26/19 07:28 Chloride 93.2 mmol/L (98-107) L 06/26/19 07:28 Carbon Dioxide 27 mmol/L (22-30) 06/26/19 07:28 Anion Gap 23 mmol/L 06/26/19 07:28 BUN 24 mg/dL (9-20) H 06/26/19 07:28 Creatinine 0.9 mg/dL (0.8-1.5) 06/26/19 07:28 Estimated GFR > 60 ml/min 06/26/19 07:28 BUN/Creatinine Ratio 27 % 06/26/19 07:28 Glucose 116 mg/dL (75-100) H 06/26/19 07:28 POC Glucose 177 (70-105) H 06/27/19 11:45 Hemoglobin A1c 5.2 % (4-6) 06/25/19 19:31 Calcium 9.0 mg/dL (8.4-10.2) 06/26/19 07:28 Active Medications - Current Medications Current Medications: Generic Name Dose Route Start Last Admin Trade Name Freq PRN Reason Stop Dose Admin Acetaminophen 650 mg 06/25/19 17:16 Tylenol PO Q6H PRN Non Cardiac Pain or Temp>100.5 Acetaminophen/Hydrocodone Bitart 1 each 06/25/19 17:16 [place] 5/325 PO Q4H PRN Pain, Moderate (4-6) Albuterol 2.5 mg 06/25/19 20:07 Proventil IH Q4HRT PRN Shortness Of Breath Albuterol/Ipratropium 1 ampul 06/25/19 20:07 06/27/19 08:39 Duoneb *Not For Prn Use* IH 1 ampul TIDRT HEMA Administration Arformoterol Tartrate 15 mcg 06/25/19 20:07 06/27/19 08:39 Brovana Nebu IH 15 mcg Q12HRT HEMA Administration Budesonide 0.5 mg 06/25/19 20:07 06/27/19 08:40 Pulmicort IH 0.5 mg Q12HRT HEMA Administration Dextrose 50 ml 06/25/19 17:14 D50w (25gm) Syringe IV Q30MIN PRN Hypoglycemia Protocol Azithromycin 500 mg/ Sodium 250 mls @ 250 mls/hr 06/25/19 20:07 06/27/19 11:09 Chloride IV 250 mls/hr Q24HR HEMA Administration Protocol Insulin Human Lispro 0 unit 06/25/19 22:00 06/27/19 12:55 Humalog SUB-Q 1 unit ACHS HEMA Administration Protocol Methylprednisolone Sodium Succinate 80 mg 06/26/19 09:00 06/27/19 15:03 Solu-Medrol IV 80 mg Q8HR HEMA Administration Morphine Sulfate 2 mg 06/25/19 17:16 Morphine IV Q4H PRN Pain , Severe (7-10) Ondansetron HCl 4 mg 06/25/19 17:16 Zofran IV Q4H PRN Nausea And Vomiting Pantoprazole Sodium 40 mg 06/26/19 10:00 06/27/19 11:09 Protonix PO 40 mg QDAY HEMA Administration Nutrition/Malnutrition Assess - Dietary Evaluation Nutrition/Malnutrition Findings: Nutrition Notes Start: 06/26/19 10:19 Freq: Status: Active Protocol: Document 06/26/19 10:19 JAZLYN (Rec: 06/26/19 10:34 [email or web address] [id number]) Co-Sign 06/26/19 10:19 LP Nutrition Notes 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 Weight Status Underweight Subjective/Other Information RD screen for malnutrtion per RN. Pt stated that he thought he lost 10lbs in 6 months. Pt stated that he's naturally thin and eat everything he can . Pt ate 100% of breakfast and stated that he could eat more . Pt had no muscle or fat depletion. 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 Pt was coughing up flem, but no food. Burn Absent Trauma Absent GI Symptoms None Current % PO Good (75-100%) Minimum of two criteria No physical signs of malnutrition Is patient on ventilator? No Is Patient Ambulatory and/or Out of Bed Yes REE-([place]-ambulatory/OOB) [ 1602.975 [id number]] Nutrition Intervention Revisit per MD consult or patient Sign Off request:
--- NOTE | 2019-06-27 21:11 | Cat Scan Report ---
CT chest wo con INDICATION: cough, respiratory failure. TECHNIQUE: All CT scans at this location are performed using CT dose reduction for ALARA by means of automated e xposure control. COMPARISON: None available. FINDINGS: Mediastinum, juan and axillae appear negative in this very thin patient. Upper abdomen is grossly neg ative. No pleural fluid. No significant pulmonary disease or lesion. Lungs are mildly hyperinflated. IMPRESSION: 1. No acute abnormality. Signer Name: Raudel Mcgill MD Signed: 06/27/2019 9:07 PM Workstation Name: [id number]
[2019-06-28] MEDS: methylPREDNISolone Sod Succinate 125 MG/2 ML INJ IV SCH ×4 (00:49→21:52)
[2019-06-28] MEDS: INSULIN LISPRO 100 UNIT/ML SUB-Q SCH ×5 (00:51→18:45)
[2019-06-28] MEDS: ARFORMOTEROL 15 MCG/2 ML NEBU IH SCH ×2 (07:52→21:12)
[2019-06-28] MEDS: IPRATROPIUM/ALBUTEROL SULFATE 3 ML AMPUL.NEB IH SCH ×3 (07:52→21:12)
[2019-06-28] MEDS: BUDESONIDE 0.5 MG/2 ML NEBU IH SCH ×2 (07:52→21:12)
[2019-06-28] MEDS: AZITHROMYCIN 500 MG in SODIUM CHLORIDE 0.9% 250ML 250 ML IV SCH (10:14)
[2019-06-28] MEDS: PANTOPRAZOLE 40 MG TAB PO SCH (10:14)
--- NOTE | 2019-06-28 11:01 | Progress Note ---
Assessment and Plan Assessment and plan: Patient is 43 yo man from [facility] with a history of asthma who presents to [facility] ED with SOB for more than 2 days, now getting progressively worsen, constant, severe associated with non productive cough, wheezing and generalized malaise. 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 He ran out of nebulizer solution more than a week ago. His albuterol inhaler doesn't help. In ED, he was found to have Room air sats 82%. Initially given one hour albuterol/atrovent neb, mag sulfate, and solumedrol. Wheezing improved, but still present, so an additional albuterol 5 mg neb given. Pt feeling much better, wheezing resolved, however, pt requires Venti mask due to room air sats dropping to 82% when off oxygen. pCXR no acute finding, hyperinflated lungs. CT chest without contrast negative Acute hypoxic respiratory failure due to Asthma: treat with o2, trying to wean off Acute Asthma exacerbation: iv steroids, empiric abx, nebs Hyponatremia with hyperglycemia: initiated ssi Hyperglycemia, new DM: a1c Hypokalemia: repleted, resolved Tobacco dependency; family and marriage counsellor on stopping DVT ppx sq heparin, drop in plt repeat cbc in AM Disposition; d/c home once o2 setup he was 83% on RA and 91% RA History Interval history: Patient was seen and examined. Follow-up on current diagnosis Asthma ex. Overnig ht uneventful. Patient denies any chest pain, shortness of breath, nausea/vomiting or severe headaches. Imaging, nursing note, chart, labs and old chart reviewed. Discussed with patient. Patient still on 3 liters O2 Hospitalist Physical - Physical exam Narrative exam: Gen: thin frail, ill appearing off Vm on Nasal canula, Awake, Alert, Orientated x 3 HEENT: NCAT, EOMI, PERRL, OP Clear Neck: supple, no adenopathy, no thyromegaly, no JVD CVS/Heart: RRR, normal S1S2, pulses present bilaterally Chest/Lungs: exp wheezing, coarse bs left, Symmetrical chest expansion, good air entry bilaterally GI/Abdomen: soft, NTND, good bowel sounds, no guarding or rebound /Bladder: no suprapubic tenderness, no CVA or paraspinal tenderness Extermity/Skin: no c/c/e, no obvious rash, cyanosis around mouth resolved MSK: FROM x 4 Neuro: CN 2-12 grossly intact, no new focal deficits Psych: calm - Constitutional Vitals: Temp Pulse Resp BP Pulse Ox 97.5 F L 84 18 121/74 98 06/28/19 04:48 06/28/19 07:52 06/28/19 07:52 06/28/19 04:48 06/28/19 07:51 Results - Labs CBC & Chem 7: 06/27/19 05:13 06/26/19 07:28 Labs: Laboratory Last Values WBC 9.3 K/mm3 (4.5-11.0) 06/27/19 05:13 RBC 4.96 M/mm3 (3.65-5.03) 06/27/19 05:13 Hgb 12.1 gm/dl (11.8-15.2) 06/27/19 05:13 Hct 37.4 % (35.5-45.6) 06/27/19 05:13 MCV 75 fl (84-94) L 06/27/19 05:13 MCH 24 pg (28-32) L 06/27/19 05:13 MCHC 32 % (32-34) 06/27/19 05:13 RDW 17.6 % (13.2-15.2) H 06/27/19 05:13 Plt Count 148 K/mm3 (140-440) 06/27/19 05:13 Add Manual Diff Complete 06/25/19 10:09 Total Counted 100 06/25/19 10:09 Seg Neutrophils % Event Staff Member 06/25/19 10:09 Seg Neuts % (Manual) 92.0 % (40.0-70.0) H 06/25/19 10:09 Band Neutrophils % 0 % 06/25/19 10:09 Lymphocytes % (Manual) 6.0 % (13.4-35.0) L 06/25/19 10:09 Reactive Lymphs % (Man) 0 % 06/25/19 10:09 Monocytes % (Manual) 2.0 % (0.0-7.3) 06/25/19 10:09 Eosinophils % (Manual) 0 % (0.0-4.3) 06/25/19 10:09 Basophils % (Manual) 0 % (0.0-1.8) 06/25/19 10:09 Metamyelocytes % 0 % 06/25/19 10:09 Myelocytes % 0 % 06/25/19 10:09 Promyelocytes % 0 % 06/25/19 10:09 Blast Cells % 0 % 06/25/19 10:09 Nucleated RBC % Not Reportable 06/25/19 10:09 Seg Neutrophils # Man 8.6 K/mm3 (1.8-7.7) H 06/25/19 10:09 Band Neutrophils # 0.0 K/mm3 06/25/19 10:09 Lymphocytes # (Manual) 0.6 K/mm3 (1.2-5.4) L 06/25/19 10:09 Abs React Lymphs (Man) 0.0 K/mm3 06/25/19 10:09 Monocytes # (Manual) 0.2 K/mm3 (0.0-0.8) 06/25/19 10:09 Eosinophils # (Manual) 0.0 K/mm3 (0.0-0.4) 06/25/19 10:09 Basophils # (Manual) 0.0 K/mm3 (0.0-0.1) 06/25/19 10:09 Metamyelocytes # 0.0 K/mm3 06/25/19 10:09 Myelocytes # 0.0 K/mm3 06/25/19 10:09 Promyelocytes # 0.0 K/mm3 06/25/19 10:09 Blast Cells # 0.0 K/mm3 06/25/19 10:09 WBC Morphology Not Reportable 06/25/19 10:09 Hypersegmented Neuts Not Reportable 06/25/19 10:09 Hyposegmented Neuts Not Reportable 06/25/19 10:09 Hypogranular Neuts Not Reportable 06/25/19 10:09 Smudge Cells Not Reportable 06/25/19 10:09 Toxic Granulation Not Reportable 06/25/19 10:09 Toxic Vacuolation Not Reportable 06/25/19 10:09 Dohle Bodies Not Reportable 06/25/19 10:09 Pelger-Huet Anomaly Not Reportable 06/25/19 10:09 Aj Rods Not Reportable 06/25/19 10:09 Platelet Estimate Consistent w auto 06/25/19 10:09 Clumped Platelets Not Reportable 06/25/19 10:09 Plt Clumps, EDTA Not Reportable 06/25/19 10:09 Large Platelets Not Reportable 06/25/19 10:09 Giant Platelets Not Reportable 06/25/19 10:09 Platelet Satelliting Not Reportable 06/25/19 10:09 Plt Morphology Comment Not Reportable 06/25/19 10:09 RBC Morphology Not Reportable 06/25/19 10:09 Dimorphic RBCs Not Reportable 06/25/19 10:09 Polychromasia Not Reportable 06/25/19 10:09 Hypochromasia 1+ 06/25/19 10:09 Poikilocytosis Few 06/25/19 10:09 Anisocytosis Few 06/25/19 10:09 Microcytosis Not Reportable 06/25/19 10:09 Macrocytosis Not Reportable 06/25/19 10:09 Spherocytes Not Reportable 06/25/19 10:09 Pappenheimer Bodies Not Reportable 06/25/19 10:09 Sickle Cells Not Reportable 06/25/19 10:09 Target Cells Few 06/25/19 10:09 Tear Drop Cells Not Reportable 06/25/19 10:09 Ovalocytes Not Reportable 06/25/19 10:09 Helmet Cells Not Reportable 06/25/19 10:09 Rae-[place] Bodies Not Reportable 06/25/19 10:09 [place] Rings Not Reportable 06/25/19 10:09 [place] Cells Not Reportable 06/25/19 10:09 Bite Cells Not Reportable 06/25/19 10:09 Crenated Cell Not Reportable 06/25/19 10:09 Elliptocytes Not Reportable 06/25/19 10:09 Acanthocytes (Spur) Not Reportable 06/25/19 10:09 Rouleaux Not Reportable 06/25/19 10:09 Hemoglobin C Crystals Not Reportable 06/25/19 10:09 Schistocytes Not Reportable 06/25/19 10:09 Malaria parasites Not Reportable 06/25/19 10:09 Samson Bodies Not Reportable 06/25/19 10:09 Hem Pathologist Commnt No 06/25/19 10:09 Sodium 139 mmol/L (137-145) 06/26/19 07:28 Potassium 3.8 mmol/L (3.6-5.0) 06/26/19 07:28 Chloride 93.2 mmol/L (98-107) L 06/26/19 07:28 Carbon Dioxide 27 mmol/L (22-30) 06/26/19 07:28 Anion Gap 23 mmol/L 06/26/19 07:28 BUN 24 mg/dL (9-20) H 06/26/19 07:28 Creatinine 0.9 mg/dL (0.8-1.5) 06/26/19 07:28 Estimated GFR > 60 ml/min 06/26/19 07:28 BUN/Creatinine Ratio 27 % 06/26/19 07:28 Glucose 116 mg/dL (75-100) H 06/26/19 07:28 POC Glucose 154 (70-105) H 06/27/19 23:47 Hemoglobin A1c 5.2 % (4-6) 06/25/19 19:31 Calcium 9.0 mg/dL (8.4-10.2) 06/26/19 07:28 Active Medications - Current Medications Current Medications: Generic Name Dose Route Start Last Admin Trade Name Freq PRN Reason Stop Dose Admin Acetaminophen 650 mg 06/25/19 17:16 Tylenol PO Q6H PRN Non Cardiac Pain or Temp>100.5 Acetaminophen/Hydrocodone Bitart 1 each 06/25/19 17:16 [place] 5/325 PO Q4H PRN Pain, Moderate (4-6) Albuterol 2.5 mg 06/25/19 20:07 Proventil IH Q4HRT PRN Shortness Of Breath Albuterol/Ipratropium 1 ampul 06/25/19 20:07 06/28/19 07:52 Duoneb *Not For Prn Use* IH Not Given TIDRT HEMA Arformoterol Tartrate 15 mcg 06/25/19 20:07 06/28/19 07:52 Brovana Nebu IH 15 mcg Q12HRT HEMA Administration Budesonide 0.5 mg 06/25/19 20:07 06/28/19 07:52 Pulmicort IH 0.5 mg Q12HRT HEMA Administration Dextrose 50 ml 06/25/19 17:14 D50w (25gm) Syringe IV Q30MIN PRN Hypoglycemia Protocol Azithromycin 500 mg/ Sodium 250 mls @ 250 mls/hr 06/25/19 20:07 06/28/19 10:14 Chloride IV 250 mls/hr Q24HR HEMA Administration Protocol Insulin Human Lispro 0 unit 06/25/19 22:00 06/28/19 09:19 Humalog SUB-Q 1 unit ACHS HEMA Administration Protocol Methylprednisolone Sodium Succinate 80 mg 06/26/19 09:00 06/28/19 06:55 Solu-Medrol IV 80 mg Q8HR HEMA Administration Morphine Sulfate 2 mg 06/25/19 17:16 Morphine IV Q4H PRN Pain , Severe (7-10) Ondansetron HCl 4 mg 06/25/19 17:16 Zofran IV Q4H PRN Nausea And Vomiting Pantoprazole Sodium 40 mg 06/26/19 10:00 06/28/19 10:14 Protonix PO 40 mg QDAY HEMA Administration Nutrition/Malnutrition Assess - Dietary Evaluation Nutrition/Malnutrition Findings: Nutrition Notes Start: 06/26/19 10:19 Freq: Status: Active Protocol: Document 06/26/19 10:19 JAZLYN (Rec: 06/26/19 10:34 [email or web address] [id number]) Co-Sign 06/26/19 10:19 LP Nutrition Notes Need for Assessment generated from: rx specialist,MST Initial or Follow up Brief Note Other Pertinent Diagnosis SOB, asthma Current Diet Regular diet Labs/Tests Na 135 K 3.3 BUN 25 BG 207 Pertinent Medications Solu-Medrol Height 5 ft 6 in Weight 50.8 kg Usual Body Weight 55.3 kg [place] Body Weight (kg) 64.54 BMI 18.1 Weight change and time frame 8.1%% wt loss in 6 months. Weight Status Underweight Subjective/Other Information RD screen for malnutrtion per RN. Pt stated that he thought he lost 10lbs in 6 months. Pt stated that he's naturally thin and eat everything he can . Pt ate 100% of breakfast and stated that he could eat more . Pt had no muscle or fat depletion. Pt was eating " constantly" STAPLE SIDE LASTER. Pt was coughing up flem, but no food. Burn Absent Trauma Absent GI Symptoms None Current % PO Good (75-100%) Minimum of two criteria No physical signs of malnutrition Is patient on ventilator? No Is Patient Ambulatory and/or Out of Bed Yes REE-([place] or-ambulatory/OOB) [ 0512.975 [id number]] Nutrition Intervention Revisit per MD consult or patient Sign Off request:
--- NOTE | 2019-06-28 11:13 | Discharge Summary ---
Providers - Providers Date of Admission: 06/26/19 10:41 Date of discharge: 06/29/19 Attending physician: SRI GUERRIER Primary care physician: PSYCHIATRIC AIDES TEACHER Hospitalization Condition: Stable Hospital course: Patient is 43 yo man from [facility] with a history of asthma who presents to [facility] ED with SOB for more than 2 days, now getting progressively worsen, constant, severe associated with non productive cough, wheezing and generalized malaise. 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 He ran out of nebulizer solution more than a week ago. His albuterol inhaler doesn't help. In ED, he was found to have Room air sats 82%. Initially given one hour albuterol/atrovent neb, mag sulfate, and solumedrol. Wheezing improved, but still present, so an additional albuterol 5 mg neb given. Pt feeling much better, wheezing resolved, however, pt requires Venti mask due to room air sats dropping to 82% when off oxygen. * pCXR no acute finding, hyperinflated lungs. * CT chest without contrast negative Acute hypoxic respiratory failure due to Asthma: treat with o2, trying to wean off Acute Severe Persistent Asthma exacerbation: iv steroids, empiric abx, nebs Hyponatremia with hyperglycemia: initiated ssi Hyperglycemia, new DM: a1c Hypokalemia: repleted, resolved Tobacco dependency; eap counselor on stopping Disposition; d/c home once o2 setup he was 83% on RA and 91% RA d/w Mother Ms. Mckeon, who has been very rude and nasty to me, she says "i just get so angry...it is like he is just sitting here" I reached out to Margaux Dow, outsole caser, home O2 setup issue is that patient's insurance will not pay for O2 with the diagnoses of Asthma or acute respiratory failure diagnosis; I told to the the mother and they will pay out of pocket pO2 only 47 o2 sat 83% which was same as pulse ox Disposition: DC/TX-06 HOME UNDER HOME HL[facility] Time spent for discharge: 35 minutes Core Measure Documentation - Palliative Care Palliative Care/ Comfort Measures: Not Applicable - Core Measures Any of the following diagnoses?: none - VTE Discharge Requirements Deep Vein Thrombosis/Pulmonary Embolism Present on Admission: No Has pt received <5 days of overlap therapy or INR<2.0: No Anticoagulant overlap therapy prescribed at discharge: No Contraindication No Overlap Therapy order at DC: Not Indicated Exam - Physical Exam Narrative exam: Gen: thin frail, ill appearing off Vm on Nasal canula, Awake, Alert, Orientated x 3 HEENT: NCAT, EOMI, PERRL, OP Clear Neck: supple, no adenopathy, no thyromegaly, no JVD CVS/Heart: RRR, normal S1S2, pulses present bilaterally Chest/Lungs: exp wheezing, coarse bs left, Symmetrical chest expansion, good air entry bilaterally GI/Abdomen: soft, NTND, good bowel sounds, no guarding or rebound /Bladder: no suprapubic tenderness, no CVA or paraspinal tenderness Extermity/Skin: no c/c/e, no obvious rash, cyanosis around mouth resolved MSK: FROM x 4 Neuro: CN 2-12 grossly intact, no new focal deficits Psych: calm - Constitutional Vitals: Temp Pulse Resp BP Pulse Ox 97.5 F L 84 18 121/74 98 06/28/19 04:48 06/28/19 07:52 06/28/19 07:52 06/28/19 04:48 06/28/19 07:51 Plan Activity: other (no strenous activity unless ) Diet: regular Special Instructions: smoking cessation, home oxygen via Follow up with: PRIMARY CARE, [Primary Care Provider] - 3-5 Days SHIVAM HAMILTON MD [Staff Physician] - 7 Days Prescriptions: predniSONE [Deltasone] 1 dose PO QDAY #42 tab levoFLOXacin [Levaquin] 750 mg PO QDAY #5 tablet Pantoprazole [Protonix TAB] 40 mg PO QDAY #30 tablet ALBUTEROL NEB's [Proventil 0.083% NEBS] 2.5 mg IH Q4HRT PRN #30 nebu PRN Reason: Shortness Of Breath Montelukast [Singulair] 10 mg PO QPM #30 tablet Budesonide/Formoterol Fumarate [Symbicort 160-4.5 Mcg Inhaler] 2 puff IH BID #1 hfa.[email or web address]
[2019-06-29] MEDS: INSULIN LISPRO 100 UNIT/ML SUB-Q SCH ×3 (00:21→11:30)
[2019-06-29] MEDS: methylPREDNISolone Sod Succinate 125 MG/2 ML INJ IV SCH ×2 (06:22→13:06)
[2019-06-29] MEDS: BUDESONIDE 0.5 MG/2 ML NEBU IH SCH (08:56)
[2019-06-29] MEDS: ARFORMOTEROL 15 MCG/2 ML NEBU IH SCH (08:56)
[2019-06-29] MEDS: IPRATROPIUM/ALBUTEROL SULFATE 3 ML AMPUL.NEB IH SCH ×2 (08:56→15:03)
[2019-06-29] MEDS: PANTOPRAZOLE 40 MG TAB PO SCH (09:22)
[2019-06-29] MEDS: AZITHROMYCIN 500 MG in SODIUM CHLORIDE 0.9% 250ML 250 ML IV SCH (09:23)
[2019-06-29 09:26] LABS: ABG Base Excess 7.9 mmol/L (-2.0-3.0); ABG HCO3 33.4 mmol/L (20.0-26.0); ABG Methemoglobin 0.5 % (0.0-1.5); ABG Oxygen Saturation 83.1 % (95.0-99.0); ABG PCO2 50.9 mm Hg; ABG PH 7.435 pH Units (7.350-7.450); ABG PO2 46.8 mm Hg (80.0-90.0)
--- NOTE | 2019-06-29 11:53 | Progress Note ---
Assessment and Plan Assessment and plan: Patient is 43 yo man from [facility] with a history of asthma who presents to [facility] ED with SOB for more than 2 days, now getting progressively worsen, constant, severe associated with non productive cough, wheezing and generalized malaise. 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 He ran out of nebulizer solution more than a week ago. His albuterol inhaler doesn't help. In ED, he was found to have Room air sats 82%. Initially given one hour albuterol/atrovent neb, mag sulfate, and solumedrol. Wheezing improved, but still present, so an additional albuterol 5 mg neb given. Pt feeling much better, wheezing resolved, however, pt requires Venti mask due to room air sats dropping to 82% when off oxygen. * pCXR no acute finding, hyperinflated lungs. * CT chest without contrast negative Acute hypoxic respiratory failure due to Asthma: treat with o2, trying to wean off Acute Asthma exacerbation: iv steroids, empiric abx, nebs Hyponatremia with hyperglycemia: initiated ssi Hyperglycemia, new DM: a1c Hypokalemia: repleted, resolved Tobacco dependency; nutrition counselor on stopping DVT ppx sq heparin, drop in plt repeat cbc in AM Disposition; d/c home once o2 setup he was 83% on RA and 91% RA d/w Mother Ms. Mckeon, who has been very rude and nasty to me, she says "i just get so angry...it is like he is just sitting here" I reached out to Margaux Dow, case manager, await call back pO2 only 47 o2 sat 83% which was same as pulse ox History Interval history: Patient was seen and examined. Follow-up on current diagnosis Asthma ex. Overnight uneventful. Patient denies any chest pain, shortness of breath, nausea/vomiting or severe headaches. Imaging, nursing note, chart, labs and old chart reviewed. Discussed with patient. Patient still on 3 liters O2 Hospitalist Physical - Physical exam Narrative exam: Gen: thin frail, ill appearing off Vm on Nasal canula, Awake, Alert, Orientated x 3 HEENT: NCAT, EOMI, PERRL, OP Clear Neck: supple, no adenopathy, no thyromegaly, no JVD CVS/Heart: RRR, normal S1S2, pulses present bilaterally Chest/Lungs: exp wheezing, coarse bs left, Symmetrical chest expansion, good air entry bilaterally GI/Abdomen: soft, NTND, good bowel sounds, no guarding or rebound /Bladder: no suprapubic tenderness, no CVA or paraspinal tenderness Extermity/Skin: no c/c/e, no obvious rash, cyanosis around mouth resolved MSK: FROM x 4 Neuro: CN 2-12 grossly intact, no new focal deficits Psych: calm - Constitutional Vitals: Temp Pulse Resp BP Pulse Ox 97.5 F L 80 16 121/70 97 06/29/19 01:11 06/29/19 01:11 06/29/19 01:11 06/29/19 01:11 06/29/19 01:11 Results - Labs CBC & Chem 7: 06/27/19 05:13 06/26/19 07:28 Labs: Laboratory Last Values WBC 9.3 K/mm3 (4.5-11.0) 06/27/19 05:13 RBC 4.96 M/mm3 (3.65-5.03) 06/27/19 05:13 Hgb 12.1 gm/dl (11.8-15.2) 06/27/19 05:13 Hct 37.4 % (35.5-45.6) 06/27/19 05:13 MCV 75 fl (84-94) L 06/27/19 05:13 MCH 24 pg (28-32) L 06/27/19 05:13 MCHC 32 % (32-34) 06/27/19 05:13 RDW 17.6 % (13.2-15.2) H 06/27/19 05:13 Plt Count 148 K/mm3 (140-440) 06/27/19 05:13 Add Manual Diff Complete 06/25/19 10:09 Total Counted 100 06/25/19 10:09 Seg Neutrophils % Paper [employer] Machine Tender 06/25/19 10:09 Seg Neuts % (Manual) 92.0 % (40.0-70.0) H 06/25/19 10:09 Band Neutrophils % 0 % 06/25/19 10:09 Lymphocytes % (Manual) 6.0 % (13.4-35.0) L 06/25/19 10:09 Reactive Lymphs % (Man) 0 % 06/25/19 10:09 Monocytes % (Manual) 2.0 % (0.0-7.3) 06/25/19 10:09 Eosinophils % (Manual) 0 % (0.0-4.3) 06/25/19 10:09 Basophils % (Manual) 0 % (0.0-1.8) 06/25/19 10:09 Metamyelocytes % 0 % 06/25/19 10:09 Myelocytes % 0 % 06/25/19 10:09 Promyelocytes % 0 % 06/25/19 10:09 Blast Cells % 0 % 06/25/19 10:09 Nucleated RBC % Not Reportable 06/25/19 10:09 Seg Neutrophils # Man 8.6 K/mm3 (1.8-7.7) H 06/25/19 10:09 Band Neutrophils # 0.0 K/mm3 06/25/19 10:09 Lymphocytes # (Manual) 0.6 K/mm3 (1.2-5.4) L 06/25/19 10:09 Abs React Lymphs (Man) 0.0 K/mm3 06/25/19 10:09 Monocytes # (Manual) 0.2 K/mm3 (0.0-0.8) 06/25/19 10:09 Eosinophils # (Manual) 0.0 K/mm3 (0.0-0.4) 06/25/19 10:09 Basophils # (Manual) 0.0 K/mm3 (0.0-0.1) 06/25/19 10:09 Metamyelocytes # 0.0 K/mm3 06/25/19 10:09 Myelocytes # 0.0 K/mm3 06/25/19 10:09 Promyelocytes # 0.0 K/mm3 06/25/19 10:09 Blast Cells # 0.0 K/mm3 06/25/19 10:09 WBC Morphology Not Reportable 06/25/19 10:09 Hypersegmented Neuts Not Reportable 06/25/19 10:09 Hyposegmented Neuts Not Reportable 06/25/19 10:09 Hypogranular Neuts Not Reportable 06/25/19 10:09 Smudge Cells Not Reportable 06/25/19 10:09 Toxic Granulation Not Reportable 06/25/19 10:09 Toxic Vacuolation Not Reportable 06/25/19 10:09 Dohle Bodies Not Reportable 06/25/19 10:09 Pelger-Huet Anomaly Not Reportable 06/25/19 10:09 Aj Rods Not Reportable 06/25/19 10:09 Platelet Estimate Consistent w auto 06/25/19 10:09 Clumped Platelets Not Reportable 06/25/19 10:09 Plt Clumps, EDTA Not Reportable 06/25/19 10:09 Large Platelets Not Reportable 06/25/19 10:09 Giant Platelets Not Reportable 06/25/19 10:09 Platelet Satelliting Not Reportable 06/25/19 10:09 Plt Morphology Comment Not Reportable 06/25/19 10:09 RBC Morphology Not Reportable 06/25/19 10:09 Dimorphic RBCs Not Reportable 06/25/19 10:09 Polychromasia Not Reportable 06/25/19 10:09 Hypochromasia 1+ 06/25/19 10:09 Poikilocytosis Few 06/25/19 10:09 Anisocytosis Few 06/25/19 10:09 Microcytosis Not Reportable 06/25/19 10:09 Macrocytosis Not Reportable 06/25/19 10:09 Spherocytes Not Reportable 06/25/19 10:09 Pappenheimer Bodies Not Reportable 06/25/19 10:09 Sickle Cells Not Reportable 06/25/19 10:09 Target Cells Few 06/25/19 10:09 Tear Drop Cells Not Reportable 06/25/19 10:09 Ovalocytes Not Reportable 06/25/19 10:09 Helmet Cells Not Reportable 06/25/19 10:09 Rae-Ixl Bodies Not Reportable 06/25/19 10:09 [place] Rings Not Reportable 06/25/19 10:09 Beto Cells Not Reportable 06/25/19 10:09 Bite Cells Not Reportable 06/25/19 10:09 Crenated Cell Not Reportable 06/25/19 10:09 Elliptocytes Not Reportable 06/25/19 10:09 Acanthocytes (Spur) Not Reportable 06/25/19 10:09 Rouleaux Not Reportable 06/25/19 10:09 Hemoglobin C Crystals Not Reportable 06/25/19 10:09 Schistocytes Not Reportable 06/25/19 10:09 Malaria parasites Not Reportable 06/25/19 10:09 Samson Bodies Not Reportable 06/25/19 10:09 Hem Pathologist Commnt No 06/25/19 10:09 ABG pH 7.435 pH Units (7.350-7.450) 06/29/19 08:50 ABG pCO2 50.9 mm Hg 06/29/19 08:50 ABG pO2 46.8 mm Hg (80.0-90.0) L 06/29/19 08:50 ABG HCO3 33.4 mmol/L (20.0-26.0) H 06/29/19 08:50 ABG O2 Saturation 83.1 % (95.0-99.0) L 06/29/19 08:50 ABG O2 Content 13.0 (0.0-44) 06/29/19 08:50 ABG Base Excess 7.9 mmol/L (-2.0-3.0) H 06/29/19 08:50 ABG Hemoglobin 11.4 gm/dl (14.0-18.0) L 06/29/19 08:50 ABG Carboxyhemoglobin 1.4 % (0.0-5.0) 06/29/19 08:50 ABG Methemoglobin 0.5 % (0.0-1.5) 06/29/19 08:50 Oxyhemoglobin 81.5 % (95.0-99.0) L 06/29/19 08:50 FiO2 21 % 06/29/19 08:50 Sodium 139 mmol/L (137-145) 06/26/19 07:28 Potassium 3.8 mmol/L (3.6-5.0) 06/26/19 07:28 Chloride 93.2 mmol/L (98-107) L 06/26/19 07:28 Carbon Dioxide 27 mmol/L (22-30) 06/26/19 07:28 Anion Gap 23 mmol/L 06/26/19 07:28 BUN 24 mg/dL (9-20) H 06/26/19 07:28 Creatinine 0.9 mg/dL (0.8-1.5) 06/26/19 07:28 Estimated GFR > 60 ml/min 06/26/19 07:28 BUN/Creatinine Ratio 27 % 06/26/19 07:28 Glucose 116 mg/dL (75-100) H 06/26/19 07:28 POC Glucose 235 (70-105) H 06/29/19 11:49 Hemoglobin A1c 5.2 % (4-6) 06/25/19 19:31 Calcium 9.0 mg/dL (8.4-10.2) 06/26/19 07:28 Active Medications - Current Medications Current Medications: Generic Name Dose Route Start Last Admin Trade Name Freq PRN Reason Stop Dose Admin Acetaminophen 650 mg 06/25/19 17:16 Tylenol PO Q6H PRN Non Cardiac Pain or Temp>100.5 Acetaminophen/Hydrocodone Bitart 1 each 06/25/19 17:16 [place] 5/325 PO Q4H PRN Pain, Moderate (4-6) Albuterol 2.5 mg 06/25/19 20:07 Proventil IH Q4HRT PRN Shortness Of Breath Albuterol/Ipratropium 1 ampul 06/25/19 20:07 06/29/19 08:56 Duoneb *Not For Prn Use* IH 1 ampul TIDRT HEMA Administration Arformoterol Tartrate 15 mcg 06/25/19 20:07 06/29/19 08:56 Brovana Nebu IH 15 mcg Q12HRT HEMA Administration Budesonide 0.5 mg 06/25/19 20:07 06/29/19 08:56 Pulmicort IH 0.5 mg Q12HRT HEMA Administration Dextrose 50 ml 06/25/19 17:14 D50w (25gm) Syringe IV Q30MIN PRN Hypoglycemia Protocol Azithromycin 500 mg/ Sodium 250 mls @ 250 mls/hr 06/25/19 20:07 06/29/19 09:23 Chloride IV 250 mls/hr Q24HR HEMA Administration Protocol Insulin Human Lispro 0 unit 06/25/19 22:00 06/29/19 07:30 Humalog SUB-Q Not Given ACHS HEMA Protocol Methylprednisolone Sodium Succinate 80 mg 06/26/19 09:00 06/29/19 06:22 Solu-Medrol IV 80 mg Q8HR HEMA Administration Morphine Sulfate 2 mg 06/25/19 17:16 Morphine IV Q4H PRN Pain , Severe (7-10) Ondansetron HCl 4 mg 06/25/19 17:16 Zofran IV Q4H PRN Nausea And Vomiting Pantoprazole Sodium 40 mg 06/26/19 10:00 06/29/19 09:22 Protonix PO 40 mg QDAY HEMA Administration Nutrition/Malnutrition Assess - Dietary Evaluation Nutrition/Malnutrition Findings: Nutrition Notes Start: 06/26/19 10:19 Freq: Status: Active Protocol: Document 06/26/19 10:19 JAZLYN (Rec: 06/26/19 10:34 [email or web address] [id number]) Co-Sign 06/26/19 10:19 LP Nutrition Notes Need for Assessment generated from: manager treasury,MST Initial or Follow up Brief Note Other Pertinent Diagnosis SOB, asthma Current Diet Regular diet Labs/Tests Na 135 K 3.3 BUN 25 BG 207 Pertinent Medications Solu-Medrol Height 5 ft 6 in Weight 50.8 kg Usual Body Weight 55.3 kg [place] Body Weight (kg) 64.54 BMI 18.1 Weight change and time frame 8.1%% wt loss in 6 months. Weight Status Underweight Subjective/Other Information RD screen for malnutrtion per RN. Pt stated that he thought he lost 10lbs in 6 months. Pt stated that he's naturally thin and eat everything he can . Pt ate 100% of breakfast and stated that he could eat more . Pt had no muscle or fat depletion. Pt was eating " constantly" SPARMAKER. Pt was coughing up flem, but no food. Burn Absent Trauma Absent GI Symptoms None Current % PO Good (75-100%) Minimum of two criteria No physical signs of malnutrition Is patient on ventilator? No Is Patient Ambulatory and/or Out of Bed Yes REE-([place]-ambulatory/OOB) [ 1742.975 [id number]] Nutrition Intervention Revisit per MD consult or patient Sign Off request:
[2019-06-29] MEDS ORDERED: levoFLOXacin 750 MG TAB PO SCH (12:00)
[2019-06-29 13:10] VITALS: BP 138/84
== END 2019-06-29 18:03 | disposition home health service (06) | DRG 189 ==
LOC: ED 07:00 → 4A 10:05 → 3A 17:20 → OBSVTOIN 06-26 10:41
PROVIDERS: ADMIT Internal Medicine; ATTEND Internal Medicine
PROC: 4A033R1 Measurement of Arterial Saturation, Peripheral, Percutaneous Approach (ICD-10-PCS; principal; 2019-06-29)
DX: J96.01 Acute respiratory failure with hypoxia (principal); J45.901 Unspecified asthma with (acute) exacerbation; E87.1 Hypo-osmolality and hyponatremia; F17.210 Nicotine dependence, cigarettes, uncomplicated; E87.6 Hypokalemia; E11.65 Type 2 diabetes mellitus with hyperglycemia
CPT/HCPCS: 36415; 36600; 71045; 71250; 80048; 82803; 82962; 83036; 85007; 85025; 85027; 94640; 94644; 94760; 99406; G0378; J0456; J1815; J2930; J3475; J7050